=== PATIENT | female | born 1945 | race American Indian/Alaskan Native ===

== ENCOUNTER 2017-11-15 08:16 | Outpatient (CLI) | payer MEDICARE ==
--- NOTE | 2017-11-16 11:20 | Mammography Report ---
BILATERAL DIGITAL SCREENING MAMMOGRAM with CAD: 11/15/17 08:16:00 CLINICAL: Routine screening. COMPARISON:None. FINDINGS: The breasts are heterogeneously dense, which may obscure small masses.A right outer asymmetry with architectural distortion on the CC view requires additional imaging. No suspicious calcifications. The left breast is negative. IMPRESSION: Right asymmetry and architectural distortion requiring further workup. BI-RADS CATEGORY: 0 -- Additional Imaging Evaluation Required RECOMMENDATION: Recall for right mediolateral , exaggerated CC and spot magnification CC views and right breast ultrasound if needed. ACR BI-RADS MAMMOGRAPHIC CODES: 0 = Needs additional imaging evaluation; 1 = Negative; 2 = Benign; 3 = Probably benign; 4 = Suspicious; 5 = Malignant; 6 = Known biopsy-proven malignancy COMMENT: 1. Dense breast tissue, i.e., adenosis, fibrocystic changes, etc., may obscure an underlying neoplasm. 2. Approximately 10% of cancers are not detected with mammography. 3. A negative mammography report should not delay biopsy if a clinically suspicious mass is present. COMMENT: Patient follow-up letters are generated via our [employer] application.
== END 2017-11-15 08:17 | disposition home or self-care (01) ==
LOC: MAMMO 08:16
PROVIDERS: ATTEND Family Medicine
DX: Z12.31 Encounter for screening mammogram for malignant neoplasm of breast (principal); I10 Essential (primary) hypertension; I63.9 Cerebral infarction, unspecified; M19.90 Unspecified osteoarthritis, unspecified site; Z90.710 Acquired absence of both cervix and uterus; Z90.89 Acquired absence of other organs
CPT/HCPCS: 77067

== ENCOUNTER 2019-01-04 09:05 | Outpatient (CLI) | payer MEDICARE ==
--- NOTE | 2019-01-04 11:11 | Mammography Report ---
BONE DEXA. History: Z78.0 Post menopausal. Procedure: 3 site bone densitometry performed on a Hologic scanner. Comparison: None Findings: The BMD of the lumbar spine is 0.852 gm/cm2 with a T-score of -1.8 and a Z-score of -0.3 . The bone mineral density (BMD) of the left femoral neck is 0.601 gm/cm2 with a T-score of -2.2 and a Z-score of -1.0. The BMD of the total left hip is 0.686 gm/cm2 with a T-score of -2.1 and a Z-score of -1.0. Impression: WHO Classification: Osteopenia with increased fracture risk based on lumbar spine and left hip measur ements. The FRAX 10 year fracture probability for a major osteoporotic fracture is 5.8%. The FRAX 10 year fracture probability for hip fracture is 1.3%. Pharmacological treatment, if not already prescribed should be started. A followup bone density test is recommended in one year to monitor response to therapy. Note:FRAX version 3.01. Fracture probability calculated for an untreated patient. Fracture probabilit y may be lower if the patient has received treatment. RECOMMENDATION: Clinical correlation and routine screening. Definitions: BMD = Bone Mineral Density T score = BMD related to mean peak bone mass of young adult (Piero expressed an standard deviation) Z score = Age-matched BMD expressed in SD World health organization (WHO) diagnostic criteria: Normal: T score greater than -1 SD. Osteopenia: T score between - SD and -2.4 SD. Osteoporosis: T score -2.5 SD or below Note: BMD is not the only risk factor for fracture; also consider factors such as the patient's age, risk of falling, previous osteoporotic fracture, family history of osteoporotic fractures, smoking st atus and low body weight. All treatment decisions require clinical judgment and consideration of individual patient factors inc luding patient preferences, comorbidities, previous drug use and risk factors not captured in the FRA X model (e.g. Frailty, falls, vitamin D deficiency, increased bone turnover, interval significant dec line in BMD). A more detailed DEXA Bone Densitometry report is available upon request. Signer Name: Lamberto Bruce MD Signed: 01/04/2019 11:06 AM Workstation Name: [id number]
--- NOTE | 2019-01-04 11:53 | Mammography Report ---
DIGITAL SCREENING MAMMOGRAM WITH CAD, 01/04/2019 INDICATION: Routine screening mammography. TECHNIQUE: Digital bilateral 2D mammography was obtained in the craniocaudal and mediolateral obliq ue projections. This examination was interpreted with the benefit of Computer-Aided Detection analysi s. COMPARISON: 11/15/2017 FINDINGS: Breast Density: The breasts are heterogeneously dense, which may obscure small masses. There is no evidence of dominant mass, suspicious calcifications or architectural distortion in eithe r breast. Bilateral benign arterial calcifications. IMPRESSION: No mammographic evidence of malignancy. Follow up recommendation: Routine yearly BI-RADS Category 2: Benign. A "normal" or negative report should not discourage follow up or biopsy of a clinically significant f inding. A written summary of these findings will be mailed to the patient. The patient will be entered into a mammography reporting system which will generate a reminder letter for the patient's next appointmen t at the appropriate interval. The [employer] recommends yearly mammograms starting at age 40 and continuing as l greta as a woman is in good health. Breast MRI is recommended for women with an approximate 20-25% or greater lifetime risk of breast cancer, including women with a strong family history of breast or ova mita cancer or who have been treated for Hodgkin's disease. Signer Name: Lamberto Bruce MD Signed: 01/04/2019 11:49 AM Workstation Name: [id number]
== END 2019-01-04 09:06 | disposition home or self-care (01) ==
LOC: MAMMO 09:05
PROVIDERS: ATTEND Family Medicine
DX: Z13.820 Encounter for screening for osteoporosis (principal); Z78.0 Asymptomatic menopausal state; R92.1 Mammographic calcification found on diagnostic imaging of breast
CPT/HCPCS: 77067; 77080

== ENCOUNTER 2020-01-07 09:56 | Outpatient (CLI) | payer MEDICARE ==
--- NOTE | 2020-01-07 16:20 | Mammography Report ---
DIGITAL SCREENING MAMMOGRAM WITH CAD, 01/07/2020 INDICATION: Routine screening mammography. TECHNIQUE: Digital bilateral 2D mammography was obtained in the craniocaudal and mediolateral obliq ue projections. This examination was interpreted with the benefit of Computer-Aided Detection analysi s. COMPARISON: 11/15/2017. 10/23/2014. FINDINGS: Breast Density: There are scattered areas of fibroglandular density. There is no evidence of dominant mass, suspicious calcifications or architectural distortion in eithe r breast. IMPRESSION: Follow up recommendation: Routine yearly BI-RADS Category 1: Negative. A "normal" or negative report should not discourage follow up or biopsy of a clinically significant f inding. A written summary of these findings will be mailed to the patient. The patient will be entered into a mammography reporting system which will generate a reminder letter for the patient's next appointmen t at the appropriate interval. The [employer] recommends yearly mammograms starting at age 40 and continuing as l greta as a woman is in good health. Breast MRI is recommended for women with an approximate 20-25% or greater lifetime risk of breast cancer, including women with a strong family history of breast or ova mita cancer or who have been treated for Hodgkin's disease. Signer Name: Tung Fernandez MD Signed: 01/07/2020 4:16 PM Workstation Name: [id number] ([email or web address])
== END 2020-01-07 09:57 | disposition home or self-care (01) ==
LOC: MAMMO 09:56
PROVIDERS: ATTEND Family Medicine
DX: Z12.31 Encounter for screening mammogram for malignant neoplasm of breast (principal)
CPT/HCPCS: 77067

== ENCOUNTER 2021-01-07 08:11 | Outpatient (CLI) | payer MEDICARE ==
--- NOTE | 2021-01-07 11:13 | Mammography Report ---
DIGITAL SCREENING MAMMOGRAM WITH CAD, 01/07/2021 CLINICAL INFORMATION / INDICATION: Routine screening mammography. SCREENING MAMMOGRAM TECHNIQUE: Digital bilateral 2D mammography was obtained in the craniocaudal and mediolateral obliqu e projections. This examination was interpreted with the benefit of Computer-Aided Detection analysis . COMPARISON: 01/07/2020 FINDINGS: Breast Density: There are scattered areas of fibroglandular density. No dominant mass, suspicious calcifications, or architectural distortion in either breast. IMPRESSION: No mammographic evidence of malignancy. Follow up recommendation: Routine yearly BI-RADS Category 1: Negative. A "normal" or negative report should not discourage follow up or biopsy of a clinically significant f inding. A written summary of these findings will be mailed to the patient. The patient will be entered into a mammography reporting system which will generate a reminder letter for the patient's next appointmen t at the appropriate interval. The [employer] recommends yearly mammograms starting at age 40 and continuing as l greta as a woman is in good health. Breast MRI is recommended for women with an approximate 20-25% or greater lifetime risk of breast cancer, including women with a strong family history of breast or ova mita cancer or who have been treated for Hodgkin's disease. Signer Name: Tung Fernandez MD Signed: 01/07/2021 11:09 AM Workstation Name: [id number]
== END 2021-01-07 08:12 | disposition home or self-care (01) ==
LOC: MAMMO 08:11
PROVIDERS: ATTEND Family Medicine
DX: Z12.31 Encounter for screening mammogram for malignant neoplasm of breast (principal); N64.89 Other specified disorders of breast
CPT/HCPCS: 77067

== ENCOUNTER 2021-04-27 08:35 | Emergency (ER) | payer MEDICARE ==
[2021-04-27 08:38] VITALS: BP 129/70
[2021-04-27] MEDS ORDERED: IBUPROFEN 400 MG TAB PO ONE (08:45)
[2021-04-27] MEDS ORDERED: ACETAMINOPHEN 325 MG TAB PO ONE (08:49)
--- NOTE | 2021-04-27 08:49 | Emergency Department Report ---
ED ENT HPI - General Chief complaint: Earache Stated complaint: EAR PAIN Time Seen by Provider: 04/27/21 08:38 Source: patient Mode of arrival: Ambulatory Limitations: No Limitations - History of Present Illness Initial comments: 75-year-old -[place] female presents to the ER today with complaints of left ear pain, and pain just anterior to her left jaw. She states that the pain started 3 days ago. She states that it is worse when she opens and closes her jaw. She denies any drainage from the ear or bleeding. She denies any injury to her ear or face. She has not been sick recently with any colds. She reports no similar symptoms in the past. She states that she has been taking Tylenol which takes the edge off. She reports no fever, chills, hearing loss, headache, dizziness, vision changes, speech changes, chest pain or shortness of breath or any additional symptoms at this time. MD complaint: ear pain, other -: days(s) (3) - Related Data Home Medications Medication Instructions Recorded Confirmed Last Taken Triamter/Hctz 37.5-25 mg 1 tab PO QDAY 02/01/13 04/15/15 1 Day Ago [Maxzide-25] ~04/14/15 lisinopriL [Zestril TAB] 20 mg PO QDAY 02/01/13 04/15/15 1 Day Ago ~04/14/15 Aspirin [Aspirin BABY CHEW TAB] 81 mg PO QDAY 04/15/15 04/15/15 1 Day Ago ~04/14/15 Previous Rx's Medication Instructions Recorded Last Taken Type Famotidine [Pepcid] 20 mg PO BID #60 tablet 04/22/15 Unknown Rx Simvastatin (Nf) [Zocor TAB] 20 mg PO QHS #30 tablet 04/22/15 Unknown Rx Warfarin [Coumadin] 7.5 mg PO DAILY@1700 #30 tablet 04/22/15 Unknown Rx carvediloL [Coreg] 3.125 mg PO BID #60 tablet 04/22/15 Unknown Rx hydrALAZINE [Apresoline TAB] 25 mg PO Q8HR #90 tablet 04/22/15 Unknown Rx Acetaminophen [Acetaminophen 8 650 mg PO Q8HR PRN #20 04/27/21 Unknown Rx Hour] Amoxicillin [Trimox CAP] 500 mg PO Q8H #30 capsule 04/27/21 Unknown Rx Cetirizine HCl [ZyrTEC 10mg cap] 10 mg PO DAILY #30 cap 04/27/21 Unknown Rx Fluticasone [Flonase] 2 spray NS QDAY #1 bottle 04/27/21 Unknown Rx Allergies Allergy/AdvReac Type Severity Reaction Status Date / Time No Known Allergies Allergy Verified 04/27/21 08:36 ED Dental HPI - General Chief complaint: Earache Stated complaint: EAR PAIN Time Seen by Provider: 04/27/21 08:38 Source: patient Mode of arrival: Ambulatory Limitations: No Limitations - Related Data Home Medications Medication Instructions Recorded Confirmed Last Taken Triamter/Hctz 37.5-25 mg 1 tab PO QDAY 02/01/13 04/15/15 1 Day Ago [Maxzide-25] ~04/14/15 lisinopriL [Zestril TAB] 20 mg PO QDAY 02/01/13 04/15/15 1 Day Ago ~04/14/15 Aspirin [Aspirin BABY CHEW TAB] 81 mg PO QDAY 04/15/15 04/15/15 1 Day Ago ~04/14/15 Previous Rx's Medication Instructions Recorded Last Taken Type Famotidine [Pepcid] 20 mg PO BID #60 tablet 04/22/15 Unknown Rx Simvastatin (Nf) [Zocor TAB] 20 mg PO QHS #30 tablet 04/22/15 Unknown Rx Warfarin [Coumadin] 7.5 mg PO DAILY@1700 #30 tablet 04/22/15 Unknown Rx carvediloL [Coreg] 3.125 mg PO BID #60 tablet 04/22/15 Unknown Rx hydrALAZINE [Apresoline TAB] 25 mg PO Q8HR #90 tablet 04/22/15 Unknown Rx Acetaminophen [Acetaminophen 8 650 mg PO Q8HR PRN #20 04/27/21 Unknown Rx Hour] Amoxicillin [Trimox CAP] 500 mg PO Q8H #30 capsule 04/27/21 Unknown Rx Cetirizine HCl [ZyrTEC 10mg cap] 10 mg PO DAILY #30 cap 04/27/21 Unknown Rx Fluticasone [Flonase] 2 spray NS QDAY #1 bottle 04/27/21 Unknown Rx Allergies Allergy/AdvReac Type Severity Reaction Status Date / Time No Known Allergies Allergy Verified 04/27/21 08:36 ED Review of Systems ROS: Stated complaint: EAR PAIN Other details as noted in HPI Comment: All other systems reviewed and negative Constitutional: denies: chills, diaphoresis, fever, malaise, weakness Eyes: denies: eye pain, eye discharge, vision change ENT: ear pain. denies: throat pain, dental pain, congestion Respiratory: denies: cough, shortness of breath, wheezing Cardiovascular: denies: chest pain, palpitations Gastrointestinal: denies: abdominal pain, nausea, diarrhea, constipation, hematemesis, melena, hematochezia Genitourinary: denies: urgency, dysuria, discharge Musculoskeletal: denies: back pain, joint swelling, arthralgia Skin: denies: rash, lesions Neurological: denies: headache, weakness, paresthesias ED Past Medical Hx - Past Medical History Hx Hypertension: Yes Hx CVA: Yes Hx Liver Disease: No Hx Renal Disease: Yes (Acute or chronic renal failure, creatinine 1.9) Hx Arthritis: Yes Hx Asthma: No Additional medical history: chronic back pain - Surgical History Additional Surgical History: hysterectomy-1982, tonsillectomy/adenoidectomy - Social History Smoking Status: Never Smoker Substance Use Type: None - Medications Home Medications: Home Medications Medication Instructions Recorded Confirmed Last Taken Type Triamter/Hctz 37.5-25 mg 1 tab PO QDAY 02/01/13 04/15/15 1 Day Ago History [Maxzide-25] ~04/14/15 lisinopriL [Zestril TAB] 20 mg PO QDAY 02/01/13 04/15/15 1 Day Ago History ~04/14/15 Aspirin [Aspirin BABY CHEW TAB] 81 mg PO QDAY 04/15/15 04/15/15 1 Day Ago History ~04/14/15 Famotidine [Pepcid] 20 mg PO BID #60 tablet 04/22/15 Unknown Rx Simvastatin (Nf) [Zocor TAB] 20 mg PO QHS #30 tablet 04/22/15 Unknown Rx Warfarin [Coumadin] 7.5 mg PO DAILY@1700 #30 tablet 04/22/15 Unknown Rx carvediloL [Coreg] 3.125 mg PO BID #60 tablet 04/22/15 Unknown Rx hydrALAZINE [Apresoline TAB] 25 mg PO Q8HR #90 tablet 04/22/15 Unknown Rx Acetaminophen [Acetaminophen 8 650 mg PO Q8HR PRN #20 04/27/21 Unknown Rx Hour] Amoxicillin [Trimox CAP] 500 mg PO Q8H #30 capsule 04/27/21 Unknown Rx Cetirizine HCl [ZyrTEC 10mg cap] 10 mg PO DAILY #30 cap 04/27/21 Unknown Rx Fluticasone [Flonase] 2 spray NS QDAY #1 bottle 04/27/21 Unknown Rx ED Physical Exam - General Limitations: No Limitations General appearance: alert, in no apparent distress - Head Head exam: Present: atraumatic, normocephalic, normal inspection - Eye Eye exam: Present: normal appearance, PERRL, EOMI Pupils: Present: normal accommodation - Expanded ENT Exam Expanded Ear exam: Present: other (Moderate tenderness to palpation at the left TMJ joint. No apparent swelling or cellulitis, no mass, no fluctuance. No signs of mastoiditis.) TM/Canal exam: Erythema: Left TM (Mildly injected), Effusion: Left TM (Moderate effusion) Throat exam: Positive: normal inspection - Neck Neck exam: Present: normal inspection, full ROM. Absent: meningismus - Respiratory Respiratory exam: Present: normal lung sounds bilaterally. Absent: respiratory distress, wheezes, rales, rhonchi - Cardiovascular Cardiovascular Exam: Present: regular rate, normal rhythm, normal heart sounds - Neurological Exam Neurological exam: Present: alert, oriented X3, CN II-XII intact, normal gait - Psychiatric Psychiatric exam: Present: normal affect, normal mood - Skin Skin exam: Present: intact ED Course Vital Signs 04/27/21 08:37 Temperature 98.1 F Pulse Rate 81 Respiratory 18 Rate Blood Pressure 129/70 O2 Sat by Pulse 97 Oximetry ED Medical Decision Making - Medical Decision Making 75-year-old -[place] female presents to the ER today with complaints of left ear pain, and pain just anterior to her left jaw. She states that the pain started 3 days ago. She states that it is worse when she opens and closes her jaw. She denies any drainage from the ear or bleeding. She denies any injury to her ear or face. She has not been sick recently with any colds. She reports no similar symptoms in the past. She states that she has been taking Tylenol which takes the edge off. She reports no fever, chills, hearing loss, headache, dizziness, vision changes, speech changes, chest pain or shortness of breath or any additional symptoms at this time. Patient is well-appearing, nontoxic and not in any significant distress. Physical exam does not show any sign of mastoiditis, facial cellulitis or swelling, she has no meningeal signs on exam, she is neurologically intact with a normal gait, she has no chest pain or shortness of breath; and a history and physical does not suggest stroke. Vital signs are stable. physical exam concerning for otitis media and I also suspect TMJ syndrome. Discussed suspected diagnosis and treatment plan with patient. She expressed understanding agree with plan. Patient was stable at time of discharge. Critical care attestation.: If time is entered above; I have spent that time in minutes in the direct care of this critically ill patient, excluding procedure time. ED Disposition Clinical Impression: TMJ syndrome, Eustachian tube dysfunction, Otitis media Disposition: 01 HOME / SELF CARE / HOMELESS Is pt being admited?: No Does the pt Need Aspirin: No Condition: Stable Instructions: Otitis Media, Adult, Apeu-ny-Agwn, Temporomandibular Joint Syndrome Additional Instructions: I recommend that he take the antibiotics as prescribed, use the Flonase and take the Zyrtec as prescribed. Take the tylenol as prescribed to help with pain. I do recommend that you follow-up with your primary care doctor in the next 3 to 4 days for reevaluation. Return to the ER if your symptoms changes or worsens in any way. Prescriptions: Acetaminophen [Acetaminophen 8 Hour] 650 mg PO Q8HR PRN #20 PRN Reason: pain Fluticasone [Flonase] 2 spray NS QDAY #1 bottle Amoxicillin [Trimox CAP] 500 mg PO Q8H #30 capsule Cetirizine HCl [ZyrTEC 10mg cap] 10 mg PO DAILY #30 cap Referrals: PRIMARY CARE, [Referring] - 3-5 Days LARRY NICOLE MD [Staff Physician] - 3-5 Days (ENT) Time of Disposition: 08:51
== END 2021-04-27 09:09 | disposition home or self-care (01) ==
LOC: ED 08:35
DX: M26.609 Unspecified temporomandibular joint disorder, unspecified side (principal); H69.90 Unspecified Eustachian tube disorder, unspecified ear; H66.90 Otitis media, unspecified, unspecified ear; I10 Essential (primary) hypertension
CPT/HCPCS: 99282